=== PATIENT | male | born 1995 | race Caucasian/White ===

== ENCOUNTER → 2024-04-10 | Day surgery (SDC) | payer OTHER ==
[~2024-04-10] MED LIST: DEXAMETHASONE SOD PHOS INJ 4 MG/ML SDV ONE; FENTANYL CITRATE/PF 100MCG/2 ML INJ ONE; IOPAMIDOL 610MG/1ML 300 MG/ML VIAL IV ONE; LIDOCAINE HCL 2% LOCAL INJ 5 ML SDV VIAL INJ ONE; NITROFURANTOIN50 MG PO; ONDANSETRON HCL INJ 2MG/ML 2ML 2 MG/ML VIAL ONE; PROPOFOL IV EMULSION 10 MG/ML 20 ML VIAL ONE; SEVOFLURANE INHAL SOLN 250 ML PEN BTL ONE
[2024-04-10] MEDS: LACTATED RINGER'S 1,000 ML ONE (11:25)
[2024-04-10] MEDS: CEFTRIAXONE 1 GM VIAL ONE (11:25)
[2024-04-10 14:45] VITALS: BP 124/67; PULSE 61; RESP 16; O2SAT 100
== END | disposition home or self-care (01) ==
LOC: OR 11:05 → EDSEX 13:00
PROVIDERS: ATTEND Urology
DX: N20.1 Calculus of ureter (principal); N13.30 Unspecified hydronephrosis; N13.5 Crossing vessel and stricture of ureter without hydronephrosis; Z46.6 Encounter for fitting and adjustment of urinary device; N31.9 Neuromuscular dysfunction of bladder, unspecified; R33.8 Other retention of urine; N39.0 Urinary tract infection, site not specified; G82.50 Quadriplegia, unspecified; G89.29 Other chronic pain; Z01.818 Encounter for other preprocedural examination; Z99.3 Dependence on wheelchair
CPT/HCPCS: 52332; 52344; 74018; 74420; C1758; C1769; C2617; J0696; J1100; J2001; J2405; J2704; J3010; J7121; Q9967

== ENCOUNTER → 2024-05-29 | Day surgery (SDC) | payer OTHER ==
[~2024-05-29] MED LIST changes: +GLYCOPYRROLATE INJ 0.2 MG/ML VIAL ONE; +MIDAZOLAM HCL 2 MG/2 ML VIAL ONE
[2024-05-29] MEDS: LACTATED RINGER'S 1,000 ML ONE (06:03)
[2024-05-29] MEDS: GENTAMICIN 80MG/NS 100 ML 200 ML IV ONE (06:03)
[2024-05-29 07:35] VITALS: TEMP 97
[2024-05-29 08:20] VITALS: BP 103/62; PULSE 76; RESP 18; O2SAT 97
== END | disposition home or self-care (01) ==
LOC: OR 05:31
PROVIDERS: ATTEND Urology
DX: N20.1 Calculus of ureter (principal); N13.1 Hydronephrosis with ureteral stricture, not elsewhere classified; N31.9 Neuromuscular dysfunction of bladder, unspecified; R33.8 Other retention of urine; N20.0 Calculus of kidney; Z46.6 Encounter for fitting and adjustment of urinary device; N28.89 Other specified disorders of kidney and ureter; N36.5 Urethral false passage; S14.104A Unspecified injury at C4 level of cervical spinal cord, initial encounter; G82.50 Quadriplegia, unspecified; X58.XXXA Exposure to other specified factors, initial encounter
CPT/HCPCS: 52351; 74420; C1758 ×2; C1769 ×2; J1100; J1580; J2001; J2250; J2405; J2704; J3010; J7121; Q9967; J2003